=== PATIENT | female | born 1990 | race Caucasian/White ===

== ENCOUNTER 2018-01-26 23:44 | Emergency (ER) | payer SELFPAY ==
[2018-01-26 23:46] VITALS: BP 141/78; PULSE 77; RESP 14; TEMP 36.4; O2SAT 100; BMI 26.7
[2018-01-27] MEDS: Ketorolac 60 MG/2 ML Vial IM (00:40)
[2018-01-27] MEDS: Ondansetron ODT 4 MG Tablet 8 MG PO (00:40)
--- NOTE | 2018-01-27 00:44 | ED.VISSUMM ---
- ER Visit Summary Date of Service: 01/27/18 Chief Complaint: Back pain, nausea History of Present Illness: The patient is a 27 F continued back pain and sacrum region, is dealing with this for years. She status post epidural back injection by Dr. Ballard 6 days ago. No fevers. Pain not improved. Is today because of pain, having nausea symptoms. Denies abdominal pain. Denies vomiting or diarrhea. Normal bowel movements daily. No urinary symptoms. Denies fever chills or sweats. No radicular symptoms. Patient states that other brought in paperwork, report from pain management office note she has had images including MRIs noting degenerative changes along with facet changes of her lower back. She has had treatment multiple modalities with no effectiveness. Seen other specialists with no improvement of symptoms. Patient takes ibuprofen and tramadol for pain. States she only uses tramadol at night due to drowsiness. Last use was 2 hours ago. Ibuprofen 6 hours ago. His tramadol is written by her revenue cycle manager for endometriosis she is also on oral contraceptives for her endometriosis concerns. Physical Examination: General: Alert and oriented ?3, somnolent, awakens to questions and answers questions. HEENT: Normocephalic, atraumatic. Moist mucosa membranes Neck: supple, nontender. Cardiovascular: Regular rate and rhythm, no murmurs Respiratory: Normal breath sounds, symmetric, no distress Abdomen: Soft, nontender, nondistended. Negative Barclay's or McBurney's tenderness. No suprapubic tenderness. No guarding or rebound. Back: No erythema, tender at the sacrum upper region. There is no abscess or fluctuance. No puncture wound noted. Extremities: Nontender, no edema, pulses intact ?4 Neuro: no focal neurological deficits. Test Results: [] Emergency Department Course and Treatment: Patient primary complaint today is nausea symptoms secondary to pain. She has a nontender abdomen. No signs of infection. Discussed with patient her back pain is chronic, she has had multiple imaging including MRI. She sees specialist with procedures. There is no worsening symptoms however no improving symptoms with her treatment. She is somnolent with her tramadol use. She was given Zofran ODT, Toradol injection. Nausea improved, pain was the same. Discussed with patient significant other, call pain physician tomorrow for follow-up. All questions were answered. Treatment Plan: [] Disposition: Discharge Impression: 1. Nausea 2. Chronic back pain This note was generated with [employer] dictation software. It may contain incorrect words, spelling, and punctuation that were not noted in review of the chart prior to signing ED Disposition - Plan for ED Patient: Disposition: Home or Assisted Living Chief Complaint: Abd Pain Diagnosis: Nausea, Chronic back pain Instructions: ED Nausea Vomiting, ED Back Care Tips Prescriptions: Ondansetron [Zofran Odt] 4 mg PO Q8H PRN PRN #10 tablet PRN Reason: Nausea Referrals: Elizabeth Archer [Primary Care Provider] - Giovani Ballard [NON-STAFF] - 1 Day
== END 2018-01-27 01:47 | disposition home or self-care (01) ==
PROVIDERS: Emergency Provider Emergency Medicine; Family Provider Family Medicine; PCP Family Medicine
DX: R11.0 Nausea (principal); M54.5 Low back pain; G89.29 Other chronic pain; N80.9 Endometriosis, unspecified; Z79.3 Long term (current) use of hormonal contraceptives
CPT/HCPCS: 96372; 99283